=== PATIENT | male | born 1990 | race Caucasian/White ===

== ENCOUNTER 2020-07-23 09:56 | Emergency (ER) | payer OTHER ==
[~2020-07-23] VITALS: Ht 175.3 cm; Wt 75.7 kg
[2020-07-23 09:57] VITALS: BP 152/88
[2020-07-23] MEDS ORDERED: AUGM875T28 PO (10:42)
== END 2020-07-23 11:35 | disposition home or self-care (01) ==
LOC: M ED 09:56
DX: H66.91 Otitis media, unspecified, right ear (principal); R09.81 Nasal congestion; R05 Cough; F17.210 Nicotine dependence, cigarettes, uncomplicated
CPT/HCPCS: 99283; U0003

== ENCOUNTER 2020-08-10 15:14 | Emergency (ER) | payer OTHER ==
[~2020-08-10] VITALS: Ht 177.8 cm; Wt 74.5 kg
[~2020-08-10 15:14] MED LIST: AUGM875T28 PO
[2020-08-10] MEDS ORDERED: IBUP-1022 PO (17:10)
[2020-08-10] MEDS ORDERED: CYCL-707 PO (17:10)
[2020-08-10 17:41] VITALS: BP 129/82
== END 2020-08-10 17:44 | disposition home or self-care (01) ==
LOC: M ED 15:14
DX: M54.5 Low back pain (principal); G89.29 Other chronic pain; F17.210 Nicotine dependence, cigarettes, uncomplicated; Z88.8 Allergy status to other drugs, medicaments and biological substances

== ENCOUNTER 2020-11-29 22:38 | Emergency (ER) | payer OTHER, SELFPAY ==
[~2020-11-29] VITALS: Ht 177.8 cm; Wt 78.5 kg
[~2020-11-29 22:38] MED LIST changes: +CYCL-707 PO; +IBUP-1022 PO
[2020-11-30] MEDS ORDERED: LIDOCAINE 1% MDV 20ML VIAL SC ONE (05:55)
[2020-11-30 06:50] VITALS: BP 132/58
== END 2020-11-30 06:53 | disposition home or self-care (01) ==
LOC: M ED 22:38
DX: S61.112A Laceration without foreign body of left thumb with damage to nail, initial encounter (principal); X58.XXXA Exposure to other specified factors, initial encounter; Y92.89 Other specified places as the place of occurrence of the external cause; Y99.0 Civilian activity done for income or pay; Z88.8 Allergy status to other drugs, medicaments and biological substances

== ENCOUNTER 2021-03-09 12:26 | Emergency (ER) | payer MEDICAID, SELFPAY ==
[~2021-03-09] VITALS: Ht 177.8 cm; Wt 77.3 kg
--- NOTE | 2021-03-09 14:01 | REP ---
INDICATION: left 4th finger swelling drainage 2 months COMPARISON: None. TECHNIQUE: AP, lateral, bilateral oblique views . FINDINGS: Soft tissue swelling and elevation at the nail. No subcutaneous emphysema. The osseous structures and joint spaces appear intact and unaffected. IMPRESSION: Swelling. <Electronically signed by Timo Salazar > 03/09/21 0629
--- NOTE | 2021-03-09 14:03 | REP ---
INDICATION: right great toe swelling pus, 2 months COMPARISON: None. TECHNIQUE: AP, lateral, oblique views of the right 1st toe FINDINGS: Soft tissue swelling and subungual emphysema. The osseous structures and joint spaces are intact and without obvious involvement. IMPRESSION: Swelling and sub uncal emphysema.. <Electronically signed by Timo Salazar > 03/09/21 2038
[2021-03-09] MEDS ORDERED: CEPH500C PO (17:42)
[2021-03-09] MEDS ORDERED: CEPHALEXIN 500 MG CAP PO ONE (17:50)
[2021-03-09 18:21] VITALS: BP 138/85
== END 2021-03-09 18:22 | disposition home or self-care (01) ==
LOC: M ED 12:26
DX: L60.3 Nail dystrophy (principal); L03.012 Cellulitis of left finger; L03.031 Cellulitis of right toe; F17.200 Nicotine dependence, unspecified, uncomplicated; Z88.8 Allergy status to other drugs, medicaments and biological substances

== ENCOUNTER 2021-11-16 22:10 | Emergency (ER) | payer SELFPAY ==
[~2021-11-16] VITALS: Ht 177.8 cm; Wt 72.7 kg
[~2021-11-16 22:10] MED LIST changes: +CEPH500C PO
[2021-11-16 22:11] VITALS: BP 157/106
[2021-11-16] MEDS ORDERED: APAP500T10 PO (22:15)
== END 2021-11-17 00:21 | disposition left against medical advice (07) ==
LOC: M ED 22:10
DX: Z53.21 Procedure and treatment not carried out due to patient leaving prior to being seen by health care provider (principal)

== ENCOUNTER → 2022-02-13 | Outpatient (REF) | payer OTHER ==
[~2022-02-13] MED LIST changes: +APAP500T10 PO
== END ==
LOC: M LAB REF 16:08
PROVIDERS: ATTEND Physician Assistant
DX: R50.9 Fever, unspecified (principal)

== ENCOUNTER 2024-11-04 12:03 | Emergency (ER) | payer OTHER ==
[~2024-11-04] VITALS: Ht 177.8 cm; Wt 79.8 kg
[~2024-11-04 12:03] MED LIST changes: -IBUP-1022 PO; +IBUP600T42 PO
[2024-11-04] MEDS ORDERED: CLOT1CRE56 TOP (14:47)
[2024-11-04] MEDS: CLOTRIMAZOLE 1% TOPICAL CREAM 30 GM TOP SCH (14:56)
[2024-11-04 14:59] VITALS: BP 131/91; TEMP 97.5; O2SAT 100
== END 2024-11-04 14:59 | disposition home or self-care (01) ==
LOC: M ED 12:03
DX: B35.6 Tinea cruris (principal)